=== PATIENT | female | born 1990 | race Caucasian/White ===

== ENCOUNTER → 2020-08-05 15:16 | Outpatient (CLI) | payer SELFPAY ==
[2014-10-24 08:44] VITALS: BMI 30.2
[2020-08-05 17:25] LABS: Absolute Lymphocyte Count 2.22 X10^3/uL (0.83-4.51); Absolute Neutrophil Count 6.5 X10^3/uL (2.0-7.7); Basophil# 0.02 X10^3/uL; Basophil% 0.2 % (0-1); Eosinophil# 0.01 X10^3/uL; Eosinophils% 0.1 % (0-5); Hematocrit 38.2 % (37-47); Hemoglobin 12.3 g/dL (12.0-15.0); Lymphocyte # 2.22 X10^3/ul (4.0); Lymphocyte % 23.5 % (19-41); Mean Corp Hgb Conc 32.2 g/dL (32-36); Mean Corpuscular Hgb 26.4 pg (27.0-32.0); Mean Platelet Vol. 10.8 fl (6.2-12.0); Monocyte# 0.63 X10^3/uL; Monocyte% 6.7 % (0-10); NRBC Flagged by Analyzer 0 % (0-5); Neutrophil # 6.53 X10^3/uL (2.7-7.7); Neutrophil % 69.2 % (47-70); Platelet Count 249 K/mm3 (150-450); RBC Distribution Width CV 15.1 % (11.6-14.6); Red Blood Count 4.66 M/mm3 (4.2-5.4); White Blood Count 9.4 K/mm3 (4.4-11.0)
[2020-08-10 06:06] LABS: Chlamydia By Nucleic Acid AMP Negative (Negative)
[2020-08-10 12:32] LABS: HPV Reflexed? NOT INDICATED
[2020-08-11 08:47] LABS: Gonococcus By Nucleic Acid AMP Negative (Negative)
[2020-08-11 15:13] LABS: HIV - WCH Non-Reactive (Nonreactive); Hepatitis B Surface Antigen Non-Reactive (Nonreactive); Hepatitis C Antibody Non-Reactive (Nonreactive); Rubella IgG Reactive (Nonreactive)
[2020-08-12 03:03] LABS: Prenatal RPR NONREACTIVE (NONREACTIVE)
== END ==
PROVIDERS: Visit Provider Student in an Organized Health Care Education/Training Program
DX: Z34.82 Encounter for supervision of other normal pregnancy, second trimester (principal); Z12.4 Encounter for screening for malignant neoplasm of cervix; Z11.3 Encounter for screening for infections with a predominantly sexual mode of transmission
CPT/HCPCS: 36415; 85025; 86703; 86762; 86803; 87086; 87088; 87340; 87491; 87591; 88175; G0145

== ENCOUNTER → 2020-08-12 10:36 | Outpatient (CLI) | payer SELFPAY ==
[2014-10-24 08:44] VITALS: BMI 30.2
[2020-08-12 11:54] LABS: Absolute Lymphocyte Count 1.52 X10^3/uL (0.83-4.51); Basophil# 0.02 X10^3/uL; Basophil% 0.2 % (0-1); Hematocrit 38.1 % (37-47); Hemoglobin 12.2 g/dL (12.0-15.0); Lymphocyte # 1.52 X10^3/ul (4.0); Mean Corpuscular Hgb 26.2 pg (27.0-32.0); Mean Corpuscular Volume 81.9 fL (81-99); Mean Platelet Vol. 10.3 fl (6.2-12.0); Monocyte# 0.47 X10^3/uL; Monocyte% 5.9 % (0-10); NRBC Flagged by Analyzer 0 % (0-5); Neutrophil # 5.98 X10^3/uL (2.7-7.7); Neutrophil % 74.7 % (47-70); Platelet Count 236 K/mm3 (150-450); RBC Distribution Width CV 15.2 % (11.6-14.6); RBC Distribution Width SD 45.4 fl (35.1-43.9); Red Blood Count 4.65 M/mm3 (4.2-5.4)
[2020-08-12 12:47] LABS: HIV - WCH Non-Reactive (Nonreactive); Hepatitis B Surface Antigen Non-Reactive (Nonreactive); Hepatitis C Antibody Non-Reactive (Nonreactive); Rubella IgG Reactive (Nonreactive)
[2020-08-19 01:41] LABS: Prenatal RPR NONREACTIVE (NONREACTIVE)
== END ==
PROVIDERS: Visit Provider Student in an Organized Health Care Education/Training Program
DX: Z34.81 Encounter for supervision of other normal pregnancy, first trimester (principal)
CPT/HCPCS: 36415; 85025; 86703; 86762; 86803; 87086; 87088; 87340

== ENCOUNTER → 2020-10-18 10:21 | Outpatient (CLI) | payer SELFPAY ==
[2014-10-24 08:44] VITALS: BMI 30.2
[2020-10-18 10:37] LABS: Hematocrit 35.6 % (37-47); Hemoglobin 11.4 g/dL (12.0-15.0); Mean Corpuscular Hgb 26.7 pg (27.0-32.0); Mean Corpuscular Volume 83.4 fL (81-99); Platelet Count 221 K/mm3 (150-450); RBC Distribution Width CV 14.6 % (11.6-14.6); RBC Distribution Width SD 44.3 fl (35.1-43.9); Red Blood Count 4.27 M/mm3 (4.2-5.4); White Blood Count 8.3 K/mm3 (4.4-11.0)
[2020-10-18 10:47] LABS: Glucose Challenge Gest 1H 50g 109 mg/dL (70-140)
== END ==
PROVIDERS: Visit Provider Student in an Organized Health Care Education/Training Program
DX: Z34.83 Encounter for supervision of other normal pregnancy, third trimester (principal)
CPT/HCPCS: 36415; 82950; 85027; 86850

== ENCOUNTER → 2020-12-21 | Outpatient (CLI) | payer SELFPAY ==
[2014-10-24 08:44] VITALS: BMI 30.2
== END | disposition home or self-care (01) ==
LOC: LABSPEC 11:20
PROVIDERS: Visit Provider Obstetrics & Gynecology
DX: Z36.85 Encounter for antenatal screening for Streptococcus B (principal)
CPT/HCPCS: 87081

== ENCOUNTER 2021-01-12 05:47 | Inpatient (IN) | payer SELFPAY ==
[2014-10-24 08:44] VITALS: BMI 30.2
[2021-01-12] VITALS (23 sets, daily range): BP systolic 108–130; BP diastolic 58–84; PULSE 68–93; RESP 15–18; TEMP 36.1–37.1; O2SAT 98–99; BMI 35.2
[2021-01-12] MEDS: Lactated Ringers 1,000 ML 200 ML IV ×2 (06:05→10:35)
[2021-01-12 06:35] LABS: Absolute Lymphocyte Count 1.33 X10^3/uL (0.83-4.51); Basophil# 0.02 X10^3/uL; Basophil% 0.2 % (0-1); Eosinophil# 0.01 X10^3/uL; Eosinophils% 0.1 % (0-5); Hemoglobin 11.6 g/dL (12.0-15.0); Lymphocyte # 1.33 X10^3/ul (0.83-4.51); Lymphocyte % 14.5 % (19-41); Mean Corp Hgb Conc 32.2 g/dL (32-36); Mean Corpuscular Hgb 25.8 pg (27.0-32.0); Mean Corpuscular Volume 80.2 fL (81-99); Mean Platelet Vol. 11.1 fl (6.2-12.0); Monocyte# 0.79 X10^3/uL; Monocyte% 8.6 % (0-10); NRBC Flagged by Analyzer 0 % (0-5); Neutrophil % 76.2 % (47-70); Platelet Count 239 K/mm3 (150-450); RBC Distribution Width CV 15.5 % (11.6-14.6); RBC Distribution Width SD 44.1 fl (35.1-43.9); Red Blood Count 4.49 M/mm3 (4.2-5.4); White Blood Count 9.2 K/mm3 (4.4-11.0)
--- NOTE | 2021-01-12 06:40 | PCM.HP.BLA ---
History and Physical Date of Admission: 01/12/21 ACOG ANTEPARTUM RECORD - HISTORY AND PHYSICAL (01/12/2021) Name: JACY NG HPI: Adelaide is a 30-year-old 4 para 3-0-0-3 presenting at 39-5/7 weeks gestational age with complaint of leaking of green fluid since 12:30 AM this morning and irregular contractions. She reports good movement. OB Physician: Amy Dahl 's Physician: Jossy ...................................................................... : 1990 Age: 30 Address: [address] [place] [address] Phone: (h) [phone] (o) [phone] Insurance Carrier: Emergency Contact: TRISTAN NG [phone] ...................................................................... Final ALMA: 01/14/21 By Ultrasound: 17 weeks PARITY: (G-Total Pregnancies P-Fullterm,Premature,Induced AB,Spont AB, Ectopics, Multiple,Living) ALMA CONFIRMATION: By LMP: 04/10/20 By First Ultrasound Exam: 08/12/20 Final ALMA: 01/14/21 OB PROBLEM LIST: 1st child: genetic disorder, spastic ataxia 3rd child born with a VSD Surgical repair planned Declined genetic and carrier screens Late to care Niece with Down Syndrome No epidural planned WANTS CORD BLOOD AT DELIVERY FOR GENETIC TESTING Past medical history: Denies Past surgical history: Denies ALLERGIES: No Known Drug Allergies MEDICATIONS: Supplement (s) [No Strength] omega Supplement (s) [No Strength] vitain SOCIAL HISTORY: Smoking - Never Alcohol Use - None Diet - moderate, balanced diet Lifestyle - Exercise - active Job Description - homemaker Illicit Drug Use - denies use of street drugs Sexual Activity - Residence - lives with Place of - [place], [place] Spouse-Sig Other Name - [place] Spouse-Sig Other Occupation - [employer] Children Name(s) - Nadir (12), Reginaldo (15), Matilda (18) PRIOR DELIVERY HISTORY DEL DATE GEST LAB WT LB WT OZ TYPE ANES LABOR TX 18 Apr 15 41 4 8 8 Vag None No 20 Sep 18 40 3 6 7 Vag None No 26 Oct 12 38 12 7 14 Vag None No ANTEPARTUM FLOW CHART VISIT GE RTC FU F F WA U U DATE WK MD WKS HT PN HR M SS BP ED WT WA GL D EF ST __ ____ ___ __ __ ___ __ __ __ ___ __ __ __ ___ __ 06 Jan 39 JM 1 39 V + + 144/94 0 207 ne ne 2 60 -3 28 Donell 38 CM 1 38 V + + 136/74 0 209 tr ne 22 Donell 37 CM 1 37 V + + 126/80 0 207 ne ne 15 Donell 36 SHM 1 36 V + + 108/68 0 205 tr - 08 Dec 35 CM 1 35 V + + 132/74 0 206 tr ne 29 November 33 CM 2 33 V + + 126/74 sl - - 15 November 31 CM 2 31 + + 128/78 0 199 tr ne Oct 29 CM 4 28 + + 116/78 0 192 - - 12 Oct 27 CM 2 26 + + 112/66 0 191 tr - 15 Sep 23 CM 4 23 + + 126/70 0 188 tr ne 04 Aug 17 CM 3 +U US 110/78 0 183 tr - ANTEPARTUM NOTE(S): Jan 11 2021: retake lying on left 134/80 and 130/72 Jan 03 2021: Dec 28 2020: Dec 21 2020: GBS and LARC Dec 14 2020: Nov 29 2020: Nov 15 2020: Nov 01 2020: Oct 18 2020: Rhogam given, no concerns Sep 20 2020: glucola given Aug 12 2020: feeling well. labs done today. AM COMPREHENSIVE ANTEPARTUM NOTE(S): Jan 11 2021: Jacy is here for PNV. BP slightly elevated 144/94. Retake 134/80 and 130/72. No c/o headache or blurred vision. Shares that she is not having ctx but is having small amounts of LOF. Having good FM. No edema present today. Urine neg/neg. LSS Jan 11 2021: 39wk, desires cord blood at delivery so she can take it to get genetic testing. LOF, neg nitrizine neg ferning. CE 2cm. Likely sweep membranes at next visit. Child with VSD declined echo. Child with spastic ataxia, for post delivery testing. JM Jan 03 2021: Jacy is here for PNV. Feeling well with good FM. No ctx other that occ BH. No edema noted. Number given to pre-register at [facility]. Voices no concerns. Urine tr/neg. LSS Jan 03 2021: 38/3w visit. Would like to wait until due date to schedule IOL. Child with VSD - declined ECHO. Child with spastic ataxia - for post delivery testing. F/u 1w. CM Dec 28 2020: H taken to OB. tkg Dec 28 2020: Jacy is here for PNV. Having BH ctx and increase in pelvic pressure. No LOF. Reports good FM. No edema presently. Voices no concerns. Urine neg/neg. LSS Dec 28 2020: 37/4w. GBS neg. No consistent contractions. Child with VSD - declined ECHO. Child with spastic ataxia - post delivery testing planned. F/u 1w. CM Dec 21 2020: Jacy Mcgrath is here for a PNV at 36 weeks. Good FM. No edema present at this time. Denies concerns. No ctx's/ cramping. Mild back pain. GBS today, consent signed. LARC reviewed and declined. Dec 21 2020: GBS obtained. No complaints. Labor, FM precautions. Dec 14 2020: Jacy is here for PNV. Feeling more tired but actively getting ready at home for baby arrival. Having good FM. No edema presently but states that she will often have it in the am but usually goes away as day progresses. Thinks the baby dropped. Urine tr/neg. LSS Dec 14 2020: 35/4w visit. Child with VSD - declined ECHO. Child with spastic ataxia - for post delivery testing for this baby. F/u 2w. CM Nov 29 2020: Jacy reporting good FM. Has been spending a lot more time outside w/ weather being alba and dry and has noticed a little edema in her feet / legs. Nothing remarkable this morning. Plans to take it easy the next few days. Nov 29 2020: 33/3w visit. Child with VSD - declined ECHO. Child with spastic ataxia - post delivery testing. F/u 2w. CM Nov 15 2020: Emelia Mcgrath is here for PNV. Feeling well with no complaints or concerns. Having good FM. Very cheerful. No edema present today. Urine tr/neg. LSS Nov 15 2020: 31/1w. Child with VSD, declined ECHO. Child with spastic ataxia - for post delivery testing. F/u 2w. CM Nov 01 2020: Jacy Mcgrath is here at 29.3 w for visit. Feeling well. Baby active. Has no specific issues to discuss today. Cheerful, talkative. DR. Nov 01 2020: 29/3w visit. Child with VSD, declined ECHO. Child with spastic ataxia - for genetic testing post delivery. F/u 2w. cm Oct 18 2020: Jacy Mcgrath is here for a PNV. Good FM. No edema present. 1 HR GTT drawn today, pt is O+. Rhogam given and documented. Questions regarding cord clamping and the vitamin K shot. MK Oct 18 2020: 27/3w visit. GTT done. Discussed vit K and delayed cord clamping. F/u 2w CM Sep 20 2020: Jacy Mcgrath is here for PNV. Feeling well with good FM. Glucola given and instructions for next apt. Voiced understanding. Is Rh -. Will need Rhogam. No edema noted at this time. Urine tr/neg LSS Sep 20 2020: 23/3w visit. Child with VSD, declines ECHO. Child with spastic ataxia - plans for genetic testing after delivery. F/u 4w with glucola CM Aug 13 2020: TELEHEALTH NOB VISIT, 40 MINUTE DURATION. Jacy Mcgrath is a 30 year old with an ALMA of 01/14/2021, current GA is 18 w 0 d. She resides with he , Tristan, and their 3 children. Past history updated. She states that they are all happy with the . She plans to deliver at [facility] without an epidural, and she will breastfeed. Jacy Mcgrath is a new to this practice, practice patterns r Aug 12 2020: ALMA 01/14/21 by LMP c/w 17w US. Declined genetics/carrier screening last visit. PNP done today. Son with spastic ataxia, no other children with this. He is doing well but has some developmental delay otherwise healthy. F/u 3w. CM Aug 05 2020: Jacy Mcgrath is here for missed menses. Home and office UPT +. LMP 10-3-20. 16w/4d. ALMA --21. . Three vag deliveries. First [address] [facility] and the 3rd at . Last one was to be a home with oral and maxillofacial surgery resident but had ROM without labor so was advised to go to . First child has genetic disorder, spastic ataxia, and the 3rd has ventricular septal defect. All pregnancies were without complications. REVIEW OF SYSTEMS: GENERAL - Denies fever, or chills SKIN - Denies rash, new skin lesions, or change in moles EYES - Denies blurred vision, or change in visual acuity EARS - Denies ear pain, or difficulty hearing NOSE - Denies nasal congestion, discharge, or bleeding MOUTH - Denies sore throat, or difficulty swallowing NECK - Denies pain or swelling RESPIRATORY - Denies shortness of breath, cough, wheezing CARDIOVASCULAR - Denies palpitations, chest pain, orthopnea, PND, peripheral edema, syncope or claudication GASTROINTESTINAL - Denies nausea, vomiting, diarrhea, constipation, Denies abdominal pain, melena and or bright red blood GENITOURINARY - Denies dysuria, frequency of urination, urgency, or hesitancy MUSCULOSKELETAL - Denies joint or muscle pain, or back pain NEUROLOGICAL - Denies localized numbness, weakness, or tingling PSYCHIATRIC - Denies depression, anxiety, substance abuse or suicide attempts ENDOCRINE - Denies heat or cold intolerance, weight loss or gain, increasing thirst HEMATO-IMMUNOLOGIC - Denies easy bruising, bleeding, oral ulcerations or recurrent infections GENETICS SCREENING: Age 35+ years: No Thalassemia: No Neural Tube Defect: No Down Syndrome: niece TIM-SACHS: No Sickle Cell Disease: No Hemophilia: No Musc. Dystrophy: No Cystic Fibrosis: No-declines screening Keymar Chorea: No Mental Retardation: No Fragile X: No Other genetic: Yes, daughter Other defects: Yes, daughter SABs/still births: No Drugs since LMP: No INFECTION HISTORY: High risk AIDS: No High risk Hepatitis: No Exposed to TB: No Exposed to Herpes: No Rash/viral illness since LMP: No History of STD: No MENSTRUAL HISTORY: *Menses Amount/Duration: 6-7 DAYSMenses Regularity: RegularMenarche (Age Onset): 14* PAST SUMMARY: PARITY: 1. Total Pregnancies............ 4 2. Full Term Pregnancies........ 3 3. Premature.................... 0 4. Abortions - Induced.......... 0 5. Abortions - Spontaneous...... 0 6. Ectopics..................... 0 7. Multiple Births.............. 0 8. Living Children.............. 3 PAST #1: Date of :.................. 05/03/12 Gestation Weeks:................ 38 Length of labor(hours):......... 12 Sex:............................ M Weight-lbs:............... 7 Weight-oz:................ 14 Type of Delivery:............... Vag Type of Anesthesia:............. None Place of Delivery:.............. [place] Treatment of Labor?:.... No Comment: PAST #2: Date of :.................. 10/24/14 Gestation Weeks:................ 41 Length of labor(hours):......... 4 Sex:............................ M Weight-lbs:............... 8 Weight-oz:................ 8 Type of Delivery:............... Vag Type of Anesthesia:............. None Place of Delivery:.............. [place] Treatment of Labor?:.... No Comment: IOL, RAPID 2ND STAGE PAST #3: Date of :.................. 09/25/17 Gestation Weeks:................ 40 Length of labor(hours):......... 3 Sex:............................ F Weight-lbs:............... 6 Weight-oz:................ 7 Type of Delivery:............... Vag Type of Anesthesia:............. None Place of Delivery:.............. [facility] Treatment of Labor?:.... No Comment: SROM, RAPID 2ND STAGE, VSD PHYSICAL EXAMINATION General Appearence: 30 yo female in no acute distress Vital Signs: AF, VSS Heart: RRR without rubs or gallops Lungs: CTA x 2 Breasts: deferred Abdomen: gravid Pelvis: Cervix: 2\50 Presentation: cephalic Station: -3 : grossly ruptured with meconium stained fluid Fetus: Size: AGA Movement: present Heart: present baseline 130, moderate variability Pat set of accelerations positive variable deceleration. [place] 0-1 per 10 LAB TEST(S) ORDERED SINCE:04/19/20 12/28/2020 36+ Week Labs 10/19/2020 24-35 Week Labs 08/12/2020 PAP Smear 08/12/2020 Initial OB Labs 08/12/2020 GC-Chlamydia == ==== Order Observation Description Value Ref_Range A* Site == ==== 36+ Week Labs Group B Strep scanned Negative CHING 24-35 Week Labs HCT/HGB SCANNED CHING PAP Smear PAP Test NORMAL Normal Initial OB Labs Blood Type O Initial OB Labs Rh Type NEGATIVE Initial OB Labs Antibody Screen NEGATIVE Negative Initial OB Labs Hemoglobin Initial OB 12.3 Initial OB Labs Hematocrit Initial OB 38.2 Initial OB Labs PLT 249 Initial OB Labs Rubella IMMUNE Immune Initial OB Labs HBsAg NON-REACTIVE Negative HEP C: NON-REACTIVE Initial OB Labs HIV Test NON-REACTIVE Negative GC-Chlamydia Chlamydia NEGATIVE Negative GC-Chlamydia GC NEGATIVE No Growth == = Impression /Plan: 39 wks + 5 days intrauterine . Preparations in progress for delivery. Assessment & Plan Assessment/Plan (1) 39 weeks gestation of : (2) SROM (spontaneous rupture of membranes): PLAN: Consents reviewed. Remains in latent labor. Discussed observation versus augmentation with Pitocin. Risks, benefits, indications of Pitocin reviewed. Will start Pitocin after discussion. Maternal and status is reassuring with category 1 heart rate tracing
[2021-01-12] MEDS: Oxytocin 30 units/NS 500 ml 30 UNITS/500 ML IV.SOLN IV (07:55)
[2021-01-12 08:41] LABS: Syphilis Antibodies Non-reactive
[2021-01-12 08:56] LABS: Hepatitis C Antibody Non-Reactive (Nonreactive)
[2021-01-12] MEDS: Lactated Ringers 500 ML 999 ML IV (10:54)
[2021-01-12] MEDS: Amnioinfusion- 0.9% NS 1,000 ML IV.SOLN. INTRA-UTER (11:44)
[2021-01-12] MEDS: Oxytocin 30 units/NS 500 ml 30 UNITS/500 ML IV.SOLN 334 UNITS IV (12:08)
[2021-01-13 04:37] VITALS: BP 106/51; PULSE 71; RESP 18
--- NOTE | 2021-01-13 07:22 | PN.OBGYN_ITS ---
Subjective Subjective No overnight complaints. Pain well controlled. Objective Data Objective Data Vital Signs: Vital Signs Temp Pulse Resp BP Pulse Ox 97 F L 71 18 106/51 L 98 01/12/21 21:24 01/13/21 04:37 01/13/21 04:37 01/13/21 04:37 01/12/21 07:28 Oxygen Delivery Method Room Air Weight: 205 lb 0.478 oz Body Mass Index (BMI) 35.2 Intake & Output: Intake and Output for Last 24 Hours 01/11/21 01/12/21 01/13/21 23:59 23:59 23:59 Intake Total 2124.50 / 2124.50 Output Total 1600 / 1600 Balance 524.50 / 524.50 Lab / Micro Data Result Diagrams: 01/12/21 06:05 Labs: Laboratory Results - last 24 hr 01/12/21 01/12/21 01/12/21 06:05 06:05 06:05 Syphilis Total Ab Non-reactive Hepatitis C Antibody Non-Reactive Blood Type O NEGATIVE Antibody Screen NEGATIVE Micro: Microbiology 01/12/21 06:10 Mucosa - Nose SARS-CoV-2 Antigen (Rapid) - Final Physical Exam Const alert, oriented x3, no apparent distress and average body habitus HEENT normocephalic Head and Scalp: atraumatic Neck full ROM Resp normal respiratory effort, no retractions and no use of accessory muscles GI normal to inspection, nondistended, normoactive bowel sounds Extremity normal to inspection, full ROM and no clubbing, cyanosis or edema Psych mental status grossly normal, affect normal, speech normal and activity/motor behavior normal Assessment & Plan (1) : PLAN: day 1. Breast-feeding. Pain well controlled. Okay to discharge home today if okay with community product specialist.
--- NOTE | 2021-01-13 07:24 | PCM.DC ---
Discharge Instructions Diet Discharge Diet: No restrictions Activity Discharge Activity: Return to Normal Activity May resume sexual activity in: 4-6 weeks Weight Bearing Status: Weight bearing as tolerated Dressing / Incision Call your doctor if your incision/area has: Continuous Slow Oozing and Foul Smelling Discharge Call your doctor if you observe: Fever of 101 or Higher, Shortness of breath and Chest pain Follow Up Care Please Follow Up With: Socrates London MD When: 2-week telehealth visit, 4 to 6-week visit Test Results: Test results from this visit will be discussed in further detail at your follow-up appointment, if applicable. Discharge Plan Admission Admit Date/Time: 01/12/21 05:47 Attending Provider: Isi Sunshine Primary Care Provider: Care Physician,Rylee Primary Discharge Orders/Prescriptions Prescriptions: No Action Prenatabs FA 1 TABLET tablet 1 tab PO DAILY RF: 0 Disposition Discharge Orders: Discharge Patient (Routine); Ordered 01/13/21 Ordered By: Dr. Socrates London
[2021-01-13 08:48] VITALS: BP 110/58; PULSE 68; RESP 16; TEMP 35.7
[2021-01-13 12:38] VITALS: BP 109/66; PULSE 82; RESP 16; TEMP 35.4
--- NOTE | 2021-01-14 06:03 | EX.PCM.OBRPT ---
Assessment & Plan (1) (spontaneous vaginal delivery): (2) Shoulder dystocia during labor and delivery: Maternal Data Information Gestational age: 39 5/7 wga Vaginal Delivery Maternal Presentation Maternal Presentation: Spontaneous Rupture of Membranes Type of Induction: Pitocin and - (augmentation) Operative Information Date of Procedure: 01/12/21 Pre-Operative Diagnosis: 39 5/7 weeks gestation Post-Operative Diagnosis: 39 5/7 weeks gestation Surgery / Procedure Performed: Spontaneous Vaginal Delivery Type of Anesthesia: None Estimated Blood Loss: 300 ml Findings Description of Procedure: Called for delivery. On my arrival, patient was in Dwayne and infant head was out and nurse subsequently delivered . There was a nuchal cord and a cord around a lower extremity. The cord was doubly clamped by staff. I cut the cord and passed the infant to the Pediatric hospitalist for further evaluation. Cord gases, cord blood and cord donation specimen were collected. The placenta delivered spontaneously and appeared intact on inspection. The perineum was intact. Sponge counts correct x 2. Amniotic Membrane Rupture Type: Spontaneous Time of Membrane Rupture: 0030 on 01/12/21 Amniotic Fluid Description: Lightly stained meconium Placenta Disposition: [facility] Cord Vessel Description: 3 Vessels Cord Entanglement: Around neck x 1, loose and - (around foot) Nuchal Cord Compression: With compression Cord Gases: ABG and VBG Infant A Gender: Female (1 minute): 7 (5 minute): 9 Delayed Cord Clamping: No Post Vaginal Delivery Medications Given After Delivery: IV Pitocin Episiotomy Description: None Laceration: None Complication Complications: - (Nurse indicated possible shoulder dystocia for approximately 35 seconds, but this may have been attributed to suboptimal maternal positioning followed by immediate delivery once Dwayne performed.)
--- NOTE | 2021-01-19 17:14 | NURSING ---
Doing well, really liked Jojo Rodriguez and Vivi on follow up phone call.
== END 2021-01-13 13:35 | disposition home or self-care (01) | DRG 807 ==
LOC: WPOUT 05:50 → WP 05:50
PROVIDERS: Admitting Provider Obstetrics & Gynecology; Referring Provider Obstetrics & Gynecology; Visit Provider Obstetrics & Gynecology
DX: O77.0 Labor and delivery complicated by meconium in amniotic fluid (principal); Z37.0 Single live birth; Z3A.39 39 weeks gestation of pregnancy; Z82.79 Family history of other congenital malformations, deformations and chromosomal abnormalities; O66.0 Obstructed labor due to shoulder dystocia; O69.1XX0 Labor and delivery complicated by cord around neck, with compression, not applicable or unspecified
CPT/HCPCS: 59025; 59050; 85025; 86780; 86803; 86850; 86900; 86901; 87426; 99218; J7030; J7120; G0378